=== PATIENT | male | born 1995 | race Caucasian/White ===

== ENCOUNTER 2020-10-30 10:14 | Emergency (ER) | payer SELFPAY ==
[~2020-10-30] VITALS: Ht 165.1 cm; Wt 81.2 kg
[2020-10-30 10:20] VITALS: BP 129/80
--- NOTE | 2020-10-30 10:25 | NUR ---
PT TAKEN TO BED 7.
--- NOTE | 2020-10-30 10:42 | NUR ---
X-Ray at bedside.
--- NOTE | 2020-10-30 10:45 | NUR ---
BIB family with c/c left hand pain x 1 hr s/p working on a frame. Patient presents with nail to left 1st digit; rates 2. Ibuprofen prior to arrival with minor relief. Last tetanus 7 months ago. CMS intact.
--- NOTE | 2020-10-30 10:45 | NUR ---
Patient being evaluated by Dr. Murray at bedside.
[2020-10-30] MEDS ORDERED: LIDOCAINE MPF 1% 10 MG/ML VIAL INJ ONE (10:50)
--- NOTE | 2020-10-30 11:11 | NUR ---
nail removed by Dr. Murray under local anesthesia/nerve block. Tolerated procedure. Wound then irrigated with sterile saline.
[2020-10-30] MEDS ORDERED: HYDROcodone/APAP 7.5/325 MG 1 TAB PO ONE (11:15)
--- NOTE | 2020-10-30 11:35 | NUR ---
X-Ray at bedside.
[2020-10-30] MEDS ORDERED: LIDOCAINE MPF 1% 0 ML ONE (12:04)
[2020-10-30] MEDS ORDERED: LIDOCAINE MPF 1% 5 ML ONE ×2 (12:08→12:25)
--- NOTE | 2020-10-30 12:09 | NUR ---
Dr Murray is back to bedside to discuss post procedure xray result, fragment is still present, plan is to remove fragment with ultrasound assistance, patient agrees with plan of care.
[2020-10-30] MEDS ORDERED: LIDOCAINE/EPI 1% 1:100000 20 ML VIAL INJ ONE (13:09)
[2020-10-30] MEDS ORDERED: CEPH-588 PO (13:45)
[2020-10-30] MEDS ORDERED: SULF-59 PO (13:45)
[2020-10-30] MEDS ORDERED: IBUP-2213 PO (13:46)
--- NOTE | 2020-10-30 13:47 | NUR ---
procedure completed, dressed with sterile gauze, plan is to refer patient to hand specialist. Patient verbalizes understanding and agrees with plan.
--- NOTE | 2020-10-30 14:05 | NUR ---
Patient discharged with v/s stable. Written and verbal after care instructions given and explained. Patient verbalized understanding that he needs to call Hand Specialist, Phyllis Blake [facility], phone and address provided. Patient alert, oriented and verbalized understanding of instructions. Ambulatory with steady gait. All questions addressed prior to discharge. ID band removed. Patient advised to follow up with PMD. Rx of Keflex, Bactrim, Motrin given. Patient educated on indication of medication including possible reaction and side effects. Opportunity to ask questions provided and answered.
[2020-10-30 14:14] VITALS: BP 131/77
== END 2020-10-30 14:05 | disposition home or self-care (01) ==
LOC: MED 10:14
DX: S60.352A Superficial foreign body of left thumb, initial encounter (principal); X58.XXXA Exposure to other specified factors, initial encounter; Y93.89 Activity, other specified; Y92.89 Other specified places as the place of occurrence of the external cause; Y99.8 Other external cause status
CPT/HCPCS: 10120; 73120; 73130; 99285; J2001